=== PATIENT | male | born 1970 | race Caucasian/White ===

== ENCOUNTER 2016-03-31 17:59 | Emergency (ER) | payer MEDICARE, MEDICAID ==
[~2016-03-31] VITALS: Ht 182.9 cm; Wt 59.1 kg
[~2016-03-31 17:59] MED LIST: ATEN25 PO; BENZ1TAB70 PO; BUSP15TA3 PO; DESI25TA16 PO; DIPH-518 PO; DIVA500T35 PO; QUET25TA PO; RISP1TAB26 PO; SERT50TA12 PO
[2016-03-31 18:13] VITALS: BP 129/96
[2016-03-31] MEDS ORDERED: DOCU-275 PO (18:15)
[2016-03-31] MEDS ORDERED: OS500 PO (18:15)
[2016-03-31] MEDS ORDERED: KDUR10 PO (18:15)
[2016-03-31] MEDS ORDERED: FURO20 PO (18:15)
== END 2016-03-31 19:45 | disposition left against medical advice (07) ==
LOC: EMS 18:00
DX: R11.10 Vomiting, unspecified (principal); Z53.21 Procedure and treatment not carried out due to patient leaving prior to being seen by health care provider

== ENCOUNTER 2022-08-12 07:55 | Emergency (ER) | payer MEDICARE, OTHER ==
[~2022-08-12] VITALS: Ht 177.8 cm; Wt 63.6 kg
[~2022-08-12 07:55] MED LIST changes: +ATEN-73 PO; -ATEN25 PO; +DIVA-54 PO; -DIVA500T35 PO; +DOCU-385 PO; +FURO20 PO; +OS500 PO; +POTA-92 PO; -RISP1TAB26 PO; +RISP1TAB98 PO; +SERT-158 PO; -SERT50TA12 PO
[2022-08-12] MEDS ORDERED: LIDOCAINE 1% 10 ML VIAL SQ ONE (08:15)
[2022-08-12] MEDS ORDERED: PERTUSS(ACELL),DIPH,TET VAC/PF 0.5 ML SYRINGE IM. ONE (08:15)
[2022-08-12] MEDS ORDERED: LIDOCAINE 1% 20 ML VIAL SQ ONE (08:15)
[2022-08-12 13:22] VITALS: BP 120/81
== END 2022-08-12 13:22 | disposition home or self-care (01) ==
LOC: EMS 08:06
DX: S91.112A Laceration without foreign body of left great toe without damage to nail, initial encounter (principal); I10 Essential (primary) hypertension; R56.9 Unspecified convulsions; G80.9 Cerebral palsy, unspecified; X58.XXXA Exposure to other specified factors, initial encounter; Y93.89 Activity, other specified; Y92.89 Other specified places as the place of occurrence of the external cause; Y99.8 Other external cause status
CPT/HCPCS: 99283; 90715; 90471; 12002; J3490

== ENCOUNTER 2023-04-27 19:10 | Inpatient (IN) | payer MEDICARE, OTHER ==
[~2023-04-27] VITALS: Ht 157.5 cm; Wt 63.0 kg
[~2023-04-27 19:10] MED LIST changes: +AMOX1TAB16 PO; +ATOR10TA69 PO; -BENZ1TAB70 PO; +BENZ1TAB84 PO; +CALC-26 PO; +CHOL200059 PO; -DIPH-518 PO; -DIVA-54 PO; +DIVA500T53 PO; -DOCU-385 PO; +DOCU-412 PO; +LEVO25TA9 PO; -OS500 PO; +POLY17PO11 PO; -POTA-92 PO; +POTA8TAB71 PO; +QUET100T PO; -QUET25TA PO; +QUET50TA24 PO; -RISP1TAB98 PO; -SERT-158 PO; +TRAZ-252 PO
[2023-04-27] MEDS ORDERED: 0.9% SODIUM CHLORIDE 10 ML SYRINGE IVP PRN (20:15)
[2023-04-27 22:17] LABS: BASOPHILS % (AUTO) 0.7 % (0.0-2.0); HEMATOCRIT 36.7 % (41-53); HEMOGLOBIN 12.3 g/dL (13.5-17.5); LYMPHOCYTES # (AUTO) 1.4 K/uL (1.0-4.8); LYMPHOCYTES % (AUTO) 21.3 % (22.0-44.0); MEAN CORPUSCULAR HGB CONC 33.6 G/dL (31.0-37.0); MEAN CORPUSCULAR VOLUME 84 fL (80-100); MONOCYTES # (AUTO) 1.2 K/uL (0.1-1.0); MONOCYTES % (AUTO) 17.5 % (2.0-9.0); NEUTROPHILS # (AUTO) 3.9 K/uL (1.8-7.7); NEUTROPHILS % (AUTO) 59.5 % (40.0-70.0); PLATELET COUNT (AUTO) 280 K/uL (150-450); RED CELL DISTRIBUTION WIDTH 15.4 % (11.5-14.5); WHITE BLOOD COUNT (AUTO) 6.6 K/uL (4.5-11.0)
[2023-04-27 22:20] LABS: ANION GAP 10 mmol/L (8-16); CARBON DIOXIDE 27 mmol/L (22-29); CHLORIDE 105 mmol/L (98-107); CREATININE 0.68 mg/dL (0.60-1.30); GLOMERULAR FILTR. RATE CALC > 60 mL/min (>60); GLUCOSE,RANDOM 86 mg/dL (70-110); POTASSIUM 3.7 mmol/L (3.5-5.1); SODIUM SERUM 142 mmol/L (136-145); UREA NITROGEN, BLOOD 8 mg/dL (7-18)
[2023-04-27 22:22] LABS: COVID AG,FIA SOURCE NASAL SWAB
[2023-04-27 22:25] LABS: ALANINE AMINOTRANSFERASE 54 U/L (12-78); ALKALINE PHOSPHATASE 92 U/L (46-116); ASPARTATE AMINOTRANSFERASE 34 U/L (15-37); BILIRUBIN,TOTAL 0.2 mg/dL (0.1-1.0); TOTAL PROTEIN, SERUM 7.3 g/dL (6.4-8.2)
[2023-04-27 22:27] LABS: LACTIC ACID 1.4 mmol/L (0.4-2.0); TROPONIN I-HIGH SENSITIVITY 8 ng/L (<76)
[2023-04-27 22:34] LABS: B-TYPE NATRIURETIC PEPTIDE 105 pg/mL (0-100)
[2023-04-27 23:37] LABS: SARS-COV2 (COVID) ANTIGEN,FIA Negative (Negative)
[2023-04-27 23:38] LABS: INFLUENZA TYPE A NEGATIVE FOR TYPE A (NEGATIVE); INFLUENZA TYPE B NEGATIVE FOR TYPE B (NEGATIVE)
[2023-04-28] MEDS ORDERED: ACETAMINOPHEN 325 MG TABLET PO PRN (01:00)
[2023-04-28] MEDS ORDERED: DEXTROSE 50%-WATER 25 GM/50 ML SYRINGE IVP PRN (01:00)
[2023-04-28] MEDS ORDERED: INSULIN LISPRO 100 UNITS/ML SQ PRN (01:00)
[2023-04-28] MEDS ORDERED: TraZODone HCL 50 MG TABLET PO PRN (01:00)
[2023-04-28] MEDS ORDERED: POLYETHYLENE GLYCOL 3350 17 GM PACKET PO PRN (01:00)
[2023-04-28] MEDS: SODIUM CHLORIDE 0.9% 1,000 ML IV SCH (02:10)
[2023-04-28] MEDS: VALPROATE SODIUM 1,000 MG in DEXTROSE 5%-WATER 100 ML IV ONE (02:20)
[2023-04-28] MEDS: PIPERACILLIN/TAZO 3.375 GM/D5W 50 ML IV SCH (02:20)
[2023-04-28] MEDS: LEVOTHYROXINE SODIUM 25 MCG TABLET PO SCH (06:30)
[2023-04-28] MEDS: HEPARIN SODIUM,PORCINE 5,000 UNITS/ML VIAL SQ SCH (07:42)
[2023-04-28] MEDS: QUEtiapine FUMARATE 25 MG TABLET PO SCH (09:00)
[2023-04-28] MEDS: BENZTROPINE MESYLATE 1 MG TABLET PO SCH (09:00)
[2023-04-28] MEDS: ATORVASTATIN CALCIUM 10 MG TABLET PO SCH (09:00)
[2023-04-28] MEDS: DOCUSATE SODIUM 100 MG CAPSULE PO SCH (09:00)
[2023-04-28] MEDS: DESIPRAMINE HCL 25 MG TABLET PO SCH (09:00)
[2023-04-28] MEDS: ATENOLOL 25 MG TABLET PO SCH (09:00)
[2023-04-28] MEDS: BusPIRone HCL 15 MG TABLET PO SCH (09:00)
[2023-04-28 10:25] VITALS: BP 148/97; PULSE 84; RESP 22; TEMP 98.1; O2SAT 94
[2023-04-28] MEDS ORDERED: LORazepam 2 MG/ML VIAL IVP PRN (11:30)
[2023-04-28 16:00] VITALS: BP 151/77; PULSE 82; RESP 20; TEMP 98.1
[2023-04-28 18:40] LABS: APPEARANCE,URINE CLEAR (CLEAR); BILIRUBIN,URINE NEGATIVE (NEGATIVE); COLOR,URINE YELLOW (YELLOW); GLUCOSE, URINE (UA) NEGATIVE (NEGATIVE); LEUKOCYTE ESTERASE ,URINE MODERATE (NEGATIVE); NITRATE,URINE NEGATIVE (NEGATIVE); OCCULT BLOOD,URINE SMALL (NEGATIVE); PH,URINE 5.5 (5.0-8.0); PROTEIN,URINE TRACE mg/dL (NEGATIVE); SPECIFIC GRAVITIY, URINE 1.032 (1.003-1.030); UROBILINOGEN,URINE <=1.0 mg/dL (<=1.0)
[2023-04-28 18:55] LABS: BACTERIA,URINE Few /HPF (None Seen); RBC,URINE 0-2 /HPF (0-2)
[2023-04-28 19:51] VITALS: BP 132/77; PULSE 81; RESP 20; TEMP 98.1
[2023-04-28 20:00] VITALS: BP 132/77; PULSE 81; RESP 20; TEMP 98.1
[2023-04-28 20:43] LABS: GLUCOMETER DEV NAME(LOC) 5N.1C; GLUCOSE,POINT OF CARE 87 MG/DL (70-110)
[2023-04-28] MEDS: DIVALPROEX SODIUM 500 MG ER TABLET PO SCH (21:00)
[2023-04-28] MEDS: QUEtiapine FUMARATE 100 MG TABLET PO SCH (21:00)
[2023-04-29] VITALS (8 sets, daily range): BP systolic 104–158; BP diastolic 73–105; PULSE 78–104; RESP 18–20; TEMP 98–98.3
[2023-04-29 06:32] LABS: GLUCOMETER DEV NAME(LOC) 5S.1B; GLUCOSE,POINT OF CARE 81 MG/DL (70-110)
[2023-04-29 07:16] LABS: BASOPHILS % (AUTO) 0.6 % (0.0-2.0); EOSINOPHILS % (AUTO) 2.2 % (1.0-6.0); HEMATOCRIT 35.3 % (41-53); HEMOGLOBIN 11.7 g/dL (13.5-17.5); LYMPHOCYTES # (AUTO) 1.6 K/uL (1.0-4.8); LYMPHOCYTES % (AUTO) 18.7 % (22.0-44.0); MEAN CORPUSCULAR HEMOGLOBIN 27.6 pg (26.0-34.0); MEAN CORPUSCULAR HGB CONC 33.2 G/dL (31.0-37.0); MEAN CORPUSCULAR VOLUME 83 fL (80-100); MONOCYTES # (AUTO) 1.5 K/uL (0.1-1.0); MONOCYTES % (AUTO) 18.1 % (2.0-9.0); NEUTROPHILS % (AUTO) 60.4 % (40.0-70.0); PLATELET COUNT (AUTO) 338 K/uL (150-450); RED BLOOD CELL COUNT(AUTO) 4.23 MIL/uL (4.50-5.90); WHITE BLOOD COUNT (AUTO) 8.4 K/uL (4.5-11.0)
[2023-04-29 07:29] LABS: ANION GAP 15 mmol/L (8-16); CALCIUM, TOTAL 8.1 mg/dL (8.8-10.5); CARBON DIOXIDE 22 mmol/L (22-29); CHLORIDE 103 mmol/L (98-107); CREATININE 0.65 mg/dL (0.60-1.30); GLOMERULAR FILTR. RATE CALC > 60 mL/min (>60); GLUCOSE,RANDOM 78 mg/dL (70-110); SODIUM SERUM 140 mmol/L (136-145); UREA NITROGEN, BLOOD 5 mg/dL (7-18)
[2023-04-29 07:35] LABS: POTASSIUM 2.7 mmol/L (3.5-5.1)
[2023-04-29] MEDS ORDERED: POTASSIUM CHLORIDE 20 MEQ ER TABLET PO PRN (08:45)
[2023-04-29] MEDS: POTASSIUM CHL 10 MEQ/WATER 50 ML IV PRN (09:02)
[2023-04-30 04:36] VITALS: BP 143/82; PULSE 89; RESP 18; TEMP 98.8
[2023-04-30 04:46] VITALS: BP 134/64; PULSE 91; RESP 18; TEMP 98
[2023-04-30 07:31] VITALS: BP 142/91; PULSE 73; RESP 18; TEMP 97.2
[2023-04-30 11:23] VITALS: BP 140/74; PULSE 85; RESP 19; TEMP 98
[2023-04-30 14:36] VITALS: BP 146/58; PULSE 88; RESP 18; TEMP 97.2
[2023-04-30 19:28] VITALS: BP 127/73; PULSE 75; RESP 20; TEMP 97.6
[2023-05-01] VITALS (7 sets, daily range): BP systolic 117–149; BP diastolic 65–95; PULSE 71–103; RESP 18–22; TEMP 97.5–98.8
[2023-05-01 09:12] LABS: GLUCOMETER DEV NAME(LOC) 5N.1C; GLUCOSE,POINT OF CARE 73 MG/DL (70-110)
[2023-05-01 09:12] LABS: GLUCOMETER DEV NAME(LOC) 5N.1C; GLUCOSE,POINT OF CARE 80 MG/DL (70-110)
[2023-05-01] MEDS ORDERED: IPRA4AER IH (12:25)
[2023-05-01 13:43] LABS: GLUCOMETER DEV NAME(LOC) 5N.1C; GLUCOSE,POINT OF CARE 72 MG/DL (70-110)
[2023-05-01] MEDS: DEXTROSE 5%-0.45% SODIUM CHL 1,000 ML IV ONE (16:15)
[2023-05-01 21:47] LABS: GLUCOMETER DEV NAME(LOC) 5N.1C; GLUCOSE,POINT OF CARE 86 MG/DL (70-110)
[2023-05-02 01:33] LABS: GLUCOMETER DEV NAME(LOC) 5S.1B; GLUCOSE,POINT OF CARE 91 MG/DL (70-110)
[2023-05-02 01:33] LABS: GLUCOMETER DEV NAME(LOC) 5S.1B; GLUCOSE,POINT OF CARE 93 MG/DL (70-110)
[2023-05-02 07:17] LABS: ANION GAP 13 mmol/L (8-16); CALCIUM, TOTAL 8.7 mg/dL (8.8-10.5); CARBON DIOXIDE 24 mmol/L (22-29); CHLORIDE 103 mmol/L (98-107); CREATININE 0.64 mg/dL (0.60-1.30); GLOMERULAR FILTR. RATE CALC > 60 mL/min (>60); GLUCOSE,RANDOM 90 mg/dL (70-110); SODIUM SERUM 140 mmol/L (136-145); UREA NITROGEN, BLOOD 1 mg/dL (7-18)
[2023-05-02 07:18] VITALS: BP 125/78; PULSE 75; RESP 18; TEMP 98.2
[2023-05-02 07:23] LABS: POTASSIUM 2.6 mmol/L (3.5-5.1)
[2023-05-02 11:18] VITALS: BP 113/58; PULSE 82; RESP 18; TEMP 99
[2023-05-02 15:27] VITALS: BP 132/82; PULSE 73; RESP 18; TEMP 98.6
[2023-05-02 18:06] LABS: GLUCOMETER DEV NAME(LOC) 5N.1C; GLUCOSE,POINT OF CARE 90 MG/DL (70-110)
[2023-05-02 18:06] LABS: GLUCOMETER DEV NAME(LOC) 5N.1C; GLUCOSE,POINT OF CARE 99 MG/DL (70-110)
[2023-05-02 20:00] VITALS: BP 141/83; PULSE 74; RESP 17; TEMP 97.5
[2023-05-02 21:30] LABS: GLUCOMETER DEV NAME(LOC) 5S.1B; GLUCOSE,POINT OF CARE 98 MG/DL (70-110)
[2023-05-03 00:56] VITALS: BP 154/98; PULSE 82; RESP 17; TEMP 97.6
[2023-05-03 06:03] VITALS: BP 150/93; PULSE 87; RESP 18; TEMP 97.6
[2023-05-03 06:55] LABS: BASOPHILS % (AUTO) 0.7 % (0.0-2.0); EOSINOPHILS % (AUTO) 2.3 % (1.0-6.0); HEMATOCRIT 34.8 % (41-53); HEMOGLOBIN 11.8 g/dL (13.5-17.5); LYMPHOCYTES # (AUTO) 2.3 K/uL (1.0-4.8); LYMPHOCYTES % (AUTO) 21.7 % (22.0-44.0); MEAN CORPUSCULAR HEMOGLOBIN 28.2 pg (26.0-34.0); MEAN CORPUSCULAR HGB CONC 33.9 G/dL (31.0-37.0); MEAN CORPUSCULAR VOLUME 83 fL (80-100); NEUTROPHILS % (AUTO) 66.3 % (40.0-70.0); PLATELET COUNT (AUTO) 548 K/uL (150-450); RED CELL DISTRIBUTION WIDTH 15.9 % (11.5-14.5); WHITE BLOOD COUNT (AUTO) 10.5 K/uL (4.5-11.0)
[2023-05-03 07:03] LABS: ANION GAP 13 mmol/L (8-16); CARBON DIOXIDE 23 mmol/L (22-29); CHLORIDE 104 mmol/L (98-107); CREATININE 0.65 mg/dL (0.60-1.30); GLUCOSE,RANDOM 87 mg/dL (70-110); SODIUM SERUM 140 mmol/L (136-145); UREA NITROGEN, BLOOD 2 mg/dL (7-18)
[2023-05-03 07:04] LABS: CALCIUM, TOTAL 8.4 mg/dL (8.8-10.5); GLOMERULAR FILTR. RATE CALC > 60 mL/min (>60)
[2023-05-03 07:08] LABS: POTASSIUM 2.9 mmol/L (3.5-5.1)
[2023-05-03 07:16] VITALS: BP 148/83; PULSE 86; RESP 18; TEMP 98
[2023-05-03 08:20] LABS: GLUCOMETER DEV NAME(LOC) 5N.1C; GLUCOSE,POINT OF CARE 103 MG/DL (70-110)
[2023-05-03 11:38] VITALS: BP 138/90; PULSE 86; RESP 18; TEMP 98
[2023-05-03] MEDS ORDERED: IPRA4AER IH (14:10)
[2023-05-03 15:41] VITALS: BP 149/91; PULSE 75; RESP 18; TEMP 98
== END 2023-05-03 17:15 | disposition home or self-care (01) | DRG 871 ==
LOC: EMS 19:17 → 5N 04-28 04:36
PROVIDERS: ADMIT Internal Medicine; ATTEND Internal Medicine
DX: A41.9 Sepsis, unspecified organism (principal); G82.50 Quadriplegia, unspecified; N39.0 Urinary tract infection, site not specified; F72 Severe intellectual disabilities; E87.6 Hypokalemia; G40.909 Epilepsy, unspecified, not intractable, without status epilepticus; N50.89 Other specified disorders of the male genital organs; K59.00 Constipation, unspecified; R41.82 Altered mental status, unspecified; E03.9 Hypothyroidism, unspecified; Z20.822 Contact with and (suspected) exposure to COVID-19; R13.10 Dysphagia, unspecified; I10 Essential (primary) hypertension; J98.4 Other disorders of lung; Z79.899 Other long term (current) drug therapy; Z88.8 Allergy status to other drugs, medicaments and biological substances; Z87.440 Personal history of urinary (tract) infections
CPT/HCPCS: 71045; 80048; 80053; 81001; 82962; 83605; 83735; 83880; 84132; 84145; 84484; 85025; 87040; 87081; 87086; 87186; 87804; 92610; 93005; 99291; J1644; J2543; J3480; J3490; J7030; J7060; 36415-L1; 36415-TC